=== PATIENT | female | born 1955 | race Two or more races ===

== ENCOUNTER 2018-04-28 05:55 | Day surgery (SDC) | payer OTHER ==
[2018-04-28] MEDS ORDERED: PERCOCET 5-3251 EACH PO (07:32)
[2018-04-28] MEDS ORDERED: COLACE100 MG PO (07:32)
== END 2018-04-28 11:15 | disposition home or self-care (01) ==
LOC: CIR.AMB 05:55
DX: K64.4 Residual hemorrhoidal skin tags (principal); K64.2 Third degree hemorrhoids; K60.3 Anal fistula